=== PATIENT | female | born 2005 | race Two or more races ===

== ENCOUNTER → 2024-09-10 | Outpatient (CLI) | payer MEDICAID, SELFPAY ==
--- NOTE | 2024-09-10 13:00 | XR_ITS ---
Examination: Bone densitometry Date and time of exam:September 10, 2024 at 1326 hours INDICATIONS: 19-year-old female with low back pain Technique: Lumbar spine and hip total bone mineralization values of an calculated. Peak reference and age match control results have been displayed. Findings: Lumbar spine total bone mineralization is0.978 gm/cm2. This is 0.6 standard deviations below peak reference. This is 0.5 standard deviations below age-matched controls. Hip total bone mineralization is 1.025 gm/cm2 This is 0.7 standard deviations above peak reference. This is 0.7 standard deviations above age-matched controls Impression: There is normal mineralization based on lumbar spine measurements. There is normal mineralization based on hip measurements
== END | disposition home or self-care (01) ==
LOC: CDIM 13:07
PROVIDERS: Referring Provider Family Medicine; Visit Provider Family Medicine
DX: M54.50 Low back pain, unspecified (principal)
CPT/HCPCS: 77080

== ENCOUNTER 2024-09-15 16:02 | Emergency (ER) | payer MEDICAID, SELFPAY ==
[2024-09-15 16:14] VITALS: BP 117/76; PULSE 76; RESP 14; TEMP 36.6; O2SAT 100; BMI 18.4
--- NOTE | 2024-09-15 16:25 | PD.EDBACK ---
ED Back Injury Pain RME/HPI General Chief Complaint: Back Pain/Injury Stated Complaint: sacral back pain Time Seen by Provider: 09/15/24 16:20 Source: patient Arrival date/time: 09/15/24 16:02 19-year-old female with past medical history of back pain that is been ongoing for 2 years presents emergency department complaining of continued back pain. Patient reports recently had x-rays and completed physical therapy but pain still persist. Patient denies any fever, chills, dysuria, hematuria, nausea vomiting, or bowel or bladder dysfunction. Mode of arrival: ambulatory Limitations: no limitations Related Data Home Medications ?Medication ?Instructions ?Recorded ?Confirmed levothyroxine 25 mcg tablet 25 mcg PO QDAY 02/20/23 02/21/23 (Euthyrox) Previous Rx's ?Medication ?Instructions ?Recorded cyclobenzaprine 10 mg tablet 10 mg PO TID PRN muscle spasm #10 09/15/24 tabs ibuprofen 600 mg tablet 600 mg PO Q8H PRN pain #20 tabs 09/15/24 Allergies Allergy/AdvReac Type Severity Reaction Status Date / Time No Known Allergies Allergy Verified 09/15/24 16:03 Review of Systems Review of Systems Systems Reviewed: All systems reviewed, normal except as documented Constitutional Constitutional: Reports system reviewed and no additional complaints, except as documented, Denies body ache(s), Denies chills and Denies fever(s) Eyes Eyes: Reports system reviewed and no additional complaints, except as documented and Denies change in vision ENT Ears, Nose, Mouth, and Throat: Reports system reviewed and no additional complaints, except as documented, Denies disequilibrium, Denies dizziness, Denies sore throat and Denies vertigo Cardiovascular Cardiovascular: Reports system reviewed and no additional complaints, except as documented, Denies chest pain and Denies dyspnea Respiratory Respiratory: Reports system reviewed and no additional complaints, except as documented, Denies chest congestion, Denies cough and Denies dyspnea Gastrointestinal Gastrointestinal: Reports system reviewed and no additional complaints, except as documented, Denies abdominal pain, Denies nausea and Denies vomiting Musculoskeletal Musculoskeletal: Reports system reviewed and no additional complaints, except as documented, Denies abnormal gait, Denies arthralgias and Reports back pain Integumentary/Breasts Skin/Breast: Reports system reviewed and no additional complaints, except as documented, Denies erythema, Denies rash and Denies wounds Neurologic Neurologic: Reports system reviewed and no additional complaints, except as documented, Denies abnormal gait, Denies disequilibrium, Denies dizziness and Denies vertigo Past Medical History Past Medical History NEUROLOGIC: Negative Neurological Disorders or Seizures CARDIAC: Negative Cardiac Disorders or Congestive Heart Failure RESPIRATORY: Positive Asthma; Negative Chronic Obstructive Pulmonary Disease (COPD) GASTROINTESTINAL: Positive Gastrointestinal Disorders and Gastroesophageal Reflux Disease; Negative Hepatitis GENITOURINARY: Negative Genitourinary Disorders or Renal Disease REPRODUCTIVE: Negative Pelvic Inflammatory Disease MUSCULOSKELETAL: Negative Musculoskeletal Disorders ENDOCRINE: Negative Endocrine Disorders, Diabetes Mellitus Type 1 or Diabetes Mellitus Type 2 HEMATOLOGIC: Negative Blood Disorders or Sickle Cell Disease OTHER HISTORY: Negative Hospitalization, Autoimmune Disease, Down Syndrome, Developmental Delay, Falls, Blood Transfusions, Anesthesia Reactions, Chicken Pox, Measles, Mumps or Cancer Family History FAMILY HISTORY: Negative Family Psychiatric Problems, Family Respiratory Disorders, Family Cardiac Disorders, Family Gastrointestinal Problems, Family Cancer or Family Surgery Social History SMOKING STATUS: Never smoker SECOND HAND EXPOSURE: No SUBSTANCE USE: does not use ED Exam General Limitations: Present no limitations General appearance: Present alert and in no apparent distress Head Head exam: Present atraumatic Eye Eye exam: Present normal appearance, PERRL and EOMI ENT ENT exam: Present normal exam, normal oropharynx and mucous membranes moist Neck Neck exam: Present normal inspection, full ROM and trachea midline Chest Chest inspection: Present normal inspection and symmetric chest wall rise Respiratory Respiratory exam: Present normal lung sounds bilaterally Cardiovascular Cardiovascular exam: Present regular rate, normal rhythm and normal heart sounds Abdominal Exam Abdominal exam: Present soft and normal bowel sounds Extremities Exam Extremities exam: Present normal inspection and full ROM Back Exam Back exam: Present normal inspection, full ROM and straight leg raise (L); Absent CVA tenderness (R) or CVA tenderness (L) Neurological Exam Neurological exam: Present alert, oriented X3 and CN II-XII intact Psychiatric Psychiatric exam: Present normal affect and normal mood Skin Skin exam: Present warm, dry, intact and normal color Course Quality Measures none Orders Category Date Time Status CYCLObenzaPRINE [Flexeril] Med 09/15/24 16:26 Discontinued 5 mg PO X1 ONE Ketorolac Inj [Toradol Inj] Med 09/15/24 16:26 Discontinued 30 mg IM X1 ONE Vital Signs Vital signs: Vital Signs Temperature 97.8 F 09/15/24 16:14 Pulse Rate 76 09/15/24 16:14 Respiratory Rate 14 09/15/24 16:14 Blood Pressure 117/76 09/15/24 16:14 Pulse Oximetry (%) 100 09/15/24 16:14 Oxygen Delivery Method Room Air 09/15/24 16:14 100% room air within normal limits Back Pain / Injury MDM Narrative MDM Narrative:: 19-year-old female with past medical history of back pain that is been ongoing for 2 years presents emergency department complaining of continued back pain. Patient reports recently had x-rays and completed physical therapy but pain still persist. Patient denies any fever, chills, dysuria, hematuria, nausea vomiting, or bowel or bladder dysfunction. On exam no CVA tenderness but left straight leg raise positive suggestive of sciatic nerve pain. Patient ambulates independently with steady gait. Patient given pain medication and reported improvement in pain. Patient discharged and instructed follow-up with primary care provider and request MRI if symptoms persist. Patient data External records reviewed:: [facility] previous records Clinical information provided by:: patient Social determinants that could affect healthcare access:: none Patient has the following chronic illnesses:: See chart How is presenting disease/condition affected by chronic disease/condition?: exacerbated by Evaluation data The following diagnostics were reviewed and interpreted by me:: other (specify) (Not applicable) Lab and/or radiology exams considered but not ordered:: N/A Interpretation Summary: n/a Medications / Prescriptions Medications or Prescriptions considered but not ordered:: Ordered Medication administrations:: Medication Administration History Discontinued Medications Cyclobenzaprine HCl (Cyclobenzaprine 5 Mg Tablet) 5 mg PO X1 ONE Stop: 09/15/24 16:27 Last Admin: 09/15/24 16:36 Dose: 5 mg Documented By: Ketorolac Tromethamine (Ketorolac Inj 60 Mg/2 Ml Vial) 30 mg IM X1 ONE Stop: 09/15/24 16:27 Last Admin: 09/15/24 16:36 Dose: 30 mg Documented By: Given Consultations Consultation(s) initiated? (list below): No Diagnosis Differential diagnosis back pain/injury: lumbar radiculopathy, sciatica, strain of lumbar region, renal colic, pyelonephritis, thoracic back pain, AAA and discitis Most likely diagnosis given after review of the tests above:: Sciatica Admission Indicated Admission indicated?: not indicated Admission Request Was there a request for admission?: No Disposition Plan Disposition Plan: Discharge Discharge Attestation Discharge Attestation: The patient and all family members were given an opportunity to ask questions and understood the discharge instructions. Discharge instructions specifically effects, indications for sooner follow up or return to the emergency department, and the expected course of current diagnosis. Patient condition: Stable Discharge Plan Plan Patient Disposition: HOME (Self Care) Disposition Comment: Stable Prescriptions/Referrals Prescriptions/Med Rec: New cyclobenzaprine 10 mg tablet 10 mg PO TID PRN (Reason: muscle spasm) Qty: 10 0RF ibuprofen 600 mg tablet 600 mg PO Q8H PRN (Reason: pain) Qty: 20 0RF No Action levothyroxine [Euthyrox] 25 mcg Tablet 25 mcg PO QDAY Problem List Clinical Impression: Sciatica Patient/Caregiver Discharge Instructions Discharge Activity: activity as tolerated Education Materials: Anatomy of a Normal Spine, ED Sciatica Additional Instructions: Do not take meloxicam while taking ibuprofen. Take medication as prescribed. Follow-up with primary care provider and request MRI if symptoms persist. Return to the emergency department for any worsening symptoms or as needed. Print Language: Frisian Stand Alone Forms: Marcela Award Info., Patient Portal Info Letter MD Attestation Attestation The patient was seen by the midlevel practitioner. I, the co-signing physician, was present during the entire ER visit. While I did not physically examine the patient, I was available for consultation as needed.
[2024-09-15] MEDS: KETOROLAC INJ 60 MG/2 ML VIAL 30 MG IM (16:36)
[2024-09-15] MEDS: CYCLObenzaPRINE 5 MG TABLET PO (16:36)
== END 2024-09-15 16:45 | disposition home or self-care (01) ==
LOC: SERX 16:49
PROVIDERS: Emergency Provider Emergency Medicine; PCP Psychiatry & Neurology Psychiatry
DX: M54.40 Lumbago with sciatica, unspecified side (principal)
CPT/HCPCS: 96372; 99283; J1885; A9270

== ENCOUNTER → 2024-11-04 | Outpatient (CLI) | payer MEDICAID, SELFPAY ==
--- NOTE | 2024-11-04 07:00 | XR_ITS ---
Examination: MRI lumbar spine without contrast Date and time of exam: November 04, 2024 0753 hours INDICATIONS: Low back pain 2 years with abnormal posture Technique: Multiple MRI axial and sagittal sections lumbar spine. Sagittal T2-weighted images, TR 3500, TE 118 T1 weighted transverse sections, TR 688 T8.5, T2-weighted sagittal sections T1 weighted sagittal sections TR 621, TE 30 T2 axial sections, TR 4, 190, TE 84. Findings: Adequate alignment lumbar vertebral bodies on the lateral view Rand Butter film demonstrates no measurable scoliosis No lumbar fracture Normal marrow signal lumbar vertebral bodies No lumbar disc desiccation or significant lumbar disc narrowing No spondylolisthesis Axial images demonstrate no focal lumbar disc protrusion IMPRESSION: Negative for measurable scoliosis No lumbar fracture or significant lumbar disc narrowing No acquired spinal stenosis
== END | disposition home or self-care (01) ==
LOC: SMRI 07:15
PROVIDERS: PCP Family Medicine; Referring Provider Family Medicine; Visit Provider Family Medicine
DX: M54.50 Low back pain, unspecified (principal); R29.3 Abnormal posture
CPT/HCPCS: 72148